=== PATIENT | male | born 1955 | race Caucasian/White ===

== ENCOUNTER 2021-07-30 06:10 | Emergency (ER) | payer MEDICARE ==
[2021-07-30] MEDS ORDERED: ASPIRIN81 MG PO (06:34)
[2021-07-30] MEDS ORDERED: CELEBREX100 M1 PO (06:34)
[2021-07-30 06:51] VITALS: BP 144/81
== END 2021-07-30 07:00 | disposition home or self-care (01) ==
LOC: ED 06:10
DX: N48.33 Priapism, drug-induced (principal); T50.995A Adverse effect of other drugs, medicaments and biological substances, initial encounter; Z85.46 Personal history of malignant neoplasm of prostate